=== PATIENT | male | born 1945 | race Two or more races ===

== ENCOUNTER 2016-08-14 12:44 | Emergency (ER) | payer OTHER ==
[2016-08-14 17:18] VITALS: BP 130/88
== END 2016-08-14 14:41 | disposition home or self-care (01) ==
LOC: ER 12:50
DX: M19.012 Primary osteoarthritis, left shoulder (principal); E11.9 Type 2 diabetes mellitus without complications; E78.5 Hyperlipidemia, unspecified; I10 Essential (primary) hypertension
CPT/HCPCS: 73030

== ENCOUNTER 2023-03-07 11:45 | Inpatient (IN) | payer BC, OTHER ==
[~2023-03-07] VITALS: Ht 157.5 cm; Wt 67.8 kg
[~2023-03-07 11:45] MED LIST: ATOR20TA PO; GLIM4TAB42 PO; LISI2.5T47 PO; METF-372 PO; NAP500T
[2023-03-07 13:08] LABS: Basophils # (auto) 0.1 10 ^3/uL (0-0.2); Basophils % (auto) 0.8 % (0.0-2.0); Eosinophils # (auto) 0.1 10 ^3/uL (0-0.8); Hematocrit 43.8 % (41.0-53.0); Hemoglobin 14.3 g/dL (13.5-17.5); Lymphocytes # (auto) 2.7 10 ^3/uL (0.4-5.4); Mean Corpuscular Hemoglobin 27.6 pg (28.0-32.0); Mean Corpuscular Hgb Conc. 32.6 g/dL (32.0-36.0); Mean Corpuscular Volume 84.7 fL (80.0-100.0); Monocytes # (auto) 0.7 10 ^3/uL (0-1.3); Monocytes % (auto) 7.7 % (0.0-12.0); Neutrophils # (auto) 5.7 10 ^3/uL (1.6-8.6); Neutrophils % (auto) 61.5 % (37.0-80.0); Nucleated Red Blood Cells % 0.1 %; Red Blood Cells 5.18 10^6/uL (4.5-5.90); Red Cell Distribution Width 13.2 % (11.8-14.3); White Blood Cell 9.3 10^3/uL (4.4-10.8)
[2023-03-07 13:28] LABS: INR 0.98 (0.9-1.15); Partial Thromboplastin Time 27.2 SEC (24.5-34.5); Prothrombin Time 10.3 sec (9.3-11.8)
[2023-03-07 13:30] LABS: Albumin 4.3 g/dL (3.2-4.8); Alkaline Phosphatase 132 U/L (46-116); Anion Gap 8.2 (5-15); Aspartate Aminotransferase 16 U/L (13-40); BUN/Creatinine Ratio 9.5 (10.0-20.0); Blood Urea Nitrogen 9 mg/dL (9-23); Calcium 9.5 mg/dL (8.5-10.1); Carbon Dioxide 25.8 mmol/L (20-30); Chloride 97 mmol/L (98-107); Glucose 317 mg/dL (74-106); Potassium 4.4 mmol/L (3.5-5.1); Sodium 131 mmol/L (136-145)
[2023-03-07 13:31] LABS: Bilirubin, Total 0.4 mg/dL (0.2-1.0); Total Protein 7.3 g/dL (5.7-8.2)
[2023-03-07 13:44] LABS: Alanine Aminotransferase < 9 U/L (7-40)
[2023-03-07 15:22] LABS: Urine Bacteria FEW /hpf (None Seen); Urine Blood Negative /uL (Negative); Urine Clarity Clear (Clear); Urine Color Colorless (Yellow); Urine Protein, UAD Negative (Negative); Urine Specific Gravity 1.011 (1.001-1.035); Urine Urobilinogen Normal (Negative); Urine WBC 1 /hpf (0 - 3)
[2023-03-07] MEDS ORDERED: SODIUM CHLORIDE 0.9% 1,000 ML IV ONE ×2 (16:00→16:45)
[2023-03-07] MEDS ORDERED: cefTRIAXone 1GM/50ML D5W 50 ML IV ONE (16:00)
[2023-03-07] MEDS ORDERED: SODIUM CHLORIDE 0.9% 1,000 ML IVB ONE (16:00)
[2023-03-07] MEDS ORDERED: InsuLIN REG 1unit/0.01ml Soln (100units/ml) IV ONE (16:00)
[2023-03-07] MEDS ORDERED: ASPirin 81 mg TAB PO ONE (17:00)
[2023-03-07] MEDS ORDERED: hydrALAZINE HCL 20 MG/ML VL IV PRN (17:00)
[2023-03-07 17:49] LABS: Amphetamine Screen, Urine Neg (NEGATIVE); Barbiturate Scree,Urine Neg (NEGATIVE); Benzodiazephine Screen, Urine Neg (NEGATIVE); Cannabinoid Screen, Urine Neg (NEGATIVE); Cocaine Screen, Urine Neg (NEGATIVE); Opiate Scree,Urine Neg (NEGATIVE); Phencyclidine Screen, Urine Neg (NEGATIVE)
[2023-03-07] MEDS ORDERED: ATORVASTATIN 20 MG TAB PO SCH (22:00)
[2023-03-07 23:12] VITALS: BP 149/68; PULSE 64; RESP 18; TEMP 97.8; TEMP 98.7; O2SAT 97
[2023-03-08 05:00] VITALS: BP 140/77; PULSE 61; RESP 17; TEMP 98; O2SAT 96
[2023-03-08 08:00] VITALS: BP 143/77; PULSE 78; RESP 18; TEMP 98.1; O2SAT 96; O2SAT 98
[2023-03-08] MEDS ORDERED: LISINOPRIL 5 MG TAB PO SCH (10:00)
[2023-03-08] MEDS ORDERED: cefTRIAXone 1GM/50ML D5W 50 ML IV SCH (10:00)
[2023-03-08] MEDS ORDERED: DEXTROSE (50%) 50ML SYRG IV PRN (10:00)
[2023-03-08] MEDS ORDERED: INSULIN LANTUS (GLARGINE) 1 /0.01ml (100units/ml) SC SCH (10:00)
[2023-03-08 11:33] LABS: Basophils # (auto) 0.1 10 ^3/uL (0-0.2); Basophils % (auto) 0.8 % (0.0-2.0); Eosinophils # (auto) 0.2 10 ^3/uL (0-0.8); Eosinophils % (auto) 2.8 % (0.0-7.0); Hematocrit 43.6 % (41.0-53.0); Lymphocytes # (auto) 2.4 10 ^3/uL (0.4-5.4); Lymphocytes % (auto) 33.8 % (10.0-50.0); Mean Corpuscular Hemoglobin 27.4 pg (28.0-32.0); Mean Corpuscular Hgb Conc. 32.2 g/dL (32.0-36.0); Monocytes # (auto) 0.5 10 ^3/uL (0-1.3); Monocytes % (auto) 6.9 % (0.0-12.0); Neutrophils # (auto) 3.9 10 ^3/uL (1.6-8.6); Neutrophils % (auto) 55.7 % (37.0-80.0); Nucleated Red Blood Cells % 0.3 %; Red Blood Cells 5.13 10^6/uL (4.5-5.90); Red Cell Distribution Width 13.4 % (11.8-14.3)
[2023-03-08 11:49] LABS: Calcium 9.3 mg/dL (8.5-10.1); Chloride 101 mmol/L (98-107); Potassium 4.1 mmol/L (3.5-5.1); Sodium 132 mmol/L (136-145)
[2023-03-08 11:50] LABS: Anion Gap 6.5 (5-15); Carbon Dioxide 24.5 mmol/L (20-30)
[2023-03-08] MEDS: ACCU-CHEK COMFORT CURVE STRIP VI SCH ×2 (11:54→17:00)
[2023-03-08] MEDS: InsuLIN REG 1unit/0.01ml Soln (100units/ml) SC SCH ×2 (11:54→17:00)
[2023-03-08 11:55] LABS: Blood Urea Nitrogen 9 mg/dL (9-23); Glucose 357 mg/dL (74-106)
[2023-03-08 12:00] VITALS: BP 151/79; PULSE 70; RESP 16; TEMP 98.1; O2SAT 97
[2023-03-08] MEDS ORDERED: INSREGI SC ×3 (12:47→15:24)
[2023-03-08] MEDS ORDERED: INSLANTI SC ×3 (12:47→15:24)
[2023-03-08] MEDS ORDERED: LEVO500T91 PO ×2 (12:50→15:21)
[2023-03-08 13:46] VITALS: BP 151/75; PULSE 70; RESP 16; TEMP 98.1; O2SAT 97
[2023-03-08 16:00] VITALS: BP 142/71; PULSE 69; RESP 18; TEMP 98.1; O2SAT 97
[2023-03-08] MEDS ORDERED: InsuLIN REG 1unit/0.01ml Soln (100units/ml) SC SCH (22:00)
== END 2023-03-08 17:13 | disposition home or self-care (01) | DRG 71 ==
LOC: ER 11:45 → OVERFLOW 16:54 → EAST 21:55
PROVIDERS: ADMIT Internal Medicine; ATTEND Internal Medicine
DX: G93.41 Metabolic encephalopathy (principal); N39.0 Urinary tract infection, site not specified; I10 Essential (primary) hypertension; G30.9 Alzheimer's disease, unspecified; F02.A0 Dementia in other diseases classified elsewhere, mild, without behavioral disturbance, psychotic disturbance, mood disturbance, and anxiety; E78.5 Hyperlipidemia, unspecified; E11.65 Type 2 diabetes mellitus with hyperglycemia; Z79.4 Long term (current) use of insulin
CPT/HCPCS: 36415; 70450; 70551; 71045; 80048; 80053; 80307; 80320; 81001; 82607; 82962; 83036; 84443; 84484; 85025; 85610; 85730; 87086; 93886; G0378; J0696; J1815